=== PATIENT | male | born 1950 | race Caucasian/White ===

== ENCOUNTER → 2018-09-27 | Outpatient (REF) | payer OTHER | LOC: M LAB LCGH 14:49 | PROVIDERS: ATTEND Physician Assistant | DX: K13.79 Other lesions of oral mucosa (principal) ==

== ENCOUNTER → 2018-11-18 | Outpatient (REF) | LOC: M LAB LCGH 14:36 | PROVIDERS: ATTEND Surgery | DX: Z12.11 Encounter for screening for malignant neoplasm of colon (principal); D12.6 Benign neoplasm of colon, unspecified ==

== ENCOUNTER → 2019-10-23 | Outpatient (CLI) | payer MEDICARE ==
[~2019-10-23] MED LIST: ATOR80TA59 PO; ZYLO300T6 PO
== END ==
LOC: M LABSMTC 09:55
PROVIDERS: ATTEND Anesthesiology
DX: Z01.812 Encounter for preprocedural laboratory examination (principal); Z20.828 Contact with and (suspected) exposure to other viral communicable diseases
CPT/HCPCS: C9803; U0003

== ENCOUNTER 2019-10-28 06:04 | Day surgery (SDC) | payer MEDICARE ==
[~2019-10-28] VITALS: Ht 172.7 cm; Wt 78.9 kg
[~2019-10-28 06:04] MED LIST changes: +LR 1,000 ML IV ONE; +ceFAZolin SOD 1 GM in D5W MINI-BAG PLUS 50 ML IV ONE
[2019-10-28] MEDS ORDERED: LIDOCAINE 2% W/EPINEPHRINE 20ML VIAL **PRES FREE As Ordered ONE (07:15)
[2019-10-28] MEDS ORDERED: LIDOCAINE W/EPINEPHRINE 1% 20ML VIAL As Ordered ONE (07:15)
[2019-10-28] MEDS ORDERED: POLYSPORIN OPHTH OINT 3.5 GM As Ordered ONE (07:16)
[2019-10-28] MEDS ORDERED: dexameTHASONE 4 MG/ML 1ML VIAL (J1100 PER 1MG) As Ordered ONE (07:45)
[2019-10-28] MEDS ORDERED: propofoL 200 MG/20 ML VIAL As Ordered ONE (07:46)
[2019-10-28] MEDS ORDERED: fentaNYL 100 MCG/2 ML INJECTION (J3010) As Ordered ONE (07:46)
[2019-10-28] MEDS ORDERED: METOCLOPRAMIDE INJ 10MG/2ML VIAL (J2765 PER 1) As Ordered ONE (07:46)
[2019-10-28] MEDS ORDERED: ONDANSETRON 4MG/2ML VIAL As Ordered ONE (07:46)
[2019-10-28] MEDS ORDERED: LIDOCAINE 2% 100MG/5ML SDV (FOR ANES.) As Ordered ONE (07:46)
[2019-10-28] MEDS ORDERED: MIDAZOLAM INJ 2MG/2ML VIAL (J2250 PER 1MG) As Ordered ONE (07:46)
--- NOTE | 2019-10-28 08:24 | POST-OPPD ---
Postoperative Procedure Note Date Of Procedure: Oct 28, 2019 PREOPERATIVE DIAGNOSIS: Left periorbital lesion POSTOPERATIVE DIAGNOSIS: same FINDINGS: 0.7x0.5cm raised mass left lateral periorbital area PROCEDURE: Excision left periorbital lesion SURGEON: Dr Naranjo ANESTHESIA: Local with sedation SPECIMENS: Left periorbital mass ESTIMATED BLOOD LOSS: 1 cc REPLACED: none DRAINS: none COMPLICATIONS: none POSTOPERATIVE CONDITION: stable Dictation: [id number] GLORIA NARANJO DO Oct 28, 2019 08:24
[2019-10-28 08:56] VITALS: BP 145/72
--- NOTE | 2019-11-10 13:35 | RO ---
DATE OF OPERATION: 10/28/2019 PREOPERATIVE DIAGNOSIS: Left periorbital lesion. POSTOPERATIVE DIAGNOSIS: Left periorbital lesion. PROCEDURE: Excision, left periorbital lesion. FINDINGS: The lesion is a raised mass, 0.7 x 0.5 cm raised in the left lateral periorbital region. ATTENDING SURGEON: Ivanna Quintanilla DO ANESTHESIA: Local with sedation. SPECIMEN SENT: Left periorbital mass. BLOOD LOSS: 1 mL. COMPLICATIONS: None. PROCEDURE: This is a 69-year-old male who had previous trauma to his left periorbital area with glass. He has a previous scar in a left lateral inferior eyelid, and also he has a growing mass lateral to the left canthus; it is raised and it is interfering with his lateral gaze. The patient would like to have it removed. All risks and benefits and alternatives discussed with the patient in detail and he is ready to proceed. On the day of surgery, he was marked in the preoperative holding area. Informed consent confirmed. He was brought into the operating room, placed in the supine position. Preoperative antibiotics were given. Sequentials placed on the lower calves. Sedation was given to the patient, also as a local 2% lidocaine with epinephrine totaling 1 mL in a field block. Elliptical incision was carried out encompassing the whole lesion. It is 0.7 x 0.5 cm. We used a 15 blade to excise the lesion, which was hard in nature until the normal tissue was identified. Periorbital muscle was intact. The lesion was confined to the skin and subcutaneous tissue. It was sent to pathology. Wound was irrigated. Hemostasis obtained using electrocautery, and it was closed in layers with interrupted 5-0 Monocryl sutures and a 6-0 plain gut suture. Bacitracin ointment was applied, ophthalmic. The patient tolerated the procedure well and transferred to the recovery room in stable condition. IRENE
== END 2019-10-28 09:02 | disposition home or self-care (01) ==
LOC: M SDC 06:04
PROVIDERS: ATTEND Plastic Surgery Surgery of the Hand
DX: L72.0 Epidermal cyst (principal); L57.8 Other skin changes due to chronic exposure to nonionizing radiation; K21.9 Gastro-esophageal reflux disease without esophagitis; M10.9 Gout, unspecified; Z79.899 Other long term (current) drug therapy
CPT/HCPCS: 11441; 88305; J0690; J1100; J2250; J2405; J2765; J3010

== ENCOUNTER 2023-12-07 11:59 | Inpatient (IN) | payer MEDICARE ==
[~2023-12-07] VITALS: Ht 170.2 cm; Wt 80.3 kg
[~2023-12-07 11:59] MED LIST changes: -LR 1,000 ML IV ONE; -ceFAZolin SOD 1 GM in D5W MINI-BAG PLUS 50 ML IV ONE
[2023-12-07 15:50] VITALS: BP 148/69; TEMP 96.9; O2SAT 98
[2023-12-07] MEDS ORDERED: KETOROLAC 30 MG/ML 1ML VIAL IV PRN (17:00)
[2023-12-07] MEDS ORDERED: ACETAMINOPHEN 500 MG TAB PO PRN (17:00)
[2023-12-07] MEDS ORDERED: CELE10TA PO (17:57)
[2023-12-07] MEDS ORDERED: ASPI81TA26 PO (17:57)
[2023-12-07] MEDS ORDERED: C 50TAB PO (17:57)
[2023-12-07] MEDS ORDERED: FAMO40TA3 PO (17:57)
[2023-12-07] MEDS ORDERED: SILD100T PO (17:57)
[2023-12-07] MEDS ORDERED: ALLO300T2 PO (17:57)
[2023-12-07] MEDS ORDERED: HOME MED LIST COMPLETE! XX SCH (18:00)
[2023-12-07] MEDS: CLINDAMYCIN 600 MG in IV 1 EA IV SCH (18:21)
[2023-12-07 20:17] VITALS: BP 105/60; TEMP 97.6; O2SAT 93
[2023-12-07] MEDS: PANTOPRAZOLE 40MG TAB (PROTONIX) PO SCH (20:37)
[2023-12-07 23:33] VITALS: BP 150/68; TEMP 97.5; O2SAT 92
[2023-12-08 03:03] VITALS: BP 116/58; TEMP 97.8; O2SAT 95
[2023-12-08 05:01] LABS: HEMATOCRIT 38.8 % (42.0-52.0); HEMOGLOBIN 13.4 g/dl (13.5-17.5); MEAN CORPUSCULAR HEMOGLOBIN 32.2 pg (27.0-33.0); MEAN CORPUSCULAR HGB CONC 34.5 g/dl (32.0-36.5); MEAN CORPUSCULAR VOLUME 93.3 fl (80.0-96.0); PLATELET COUNT, AUTOMATED 266 10^3/uL (150-450); RED BLOOD COUNT 4.16 10^6/uL (4.30-6.10); WHITE BLOOD COUNT 10.6 10^3/uL (4.0-10.0)
[2023-12-08 05:34] LABS: BLOOD UREA NITROGEN 21 MG/DL (9-23); CALCIUM LEVEL 9.3 MG/DL (8.3-10.6); CARBON DIOXIDE LEVEL 26 MMOL/L (20-31); CHLORIDE LEVEL 108 MMOL/L (98-107); CREATININE FOR GFR 0.89 MG/DL (0.70-1.30); GLOMERULAR FILTRATION RATE > 60.0 (>42); GLUCOSE, FASTING 152 MG/DL (74-106); POTASSIUM SERUM 4.7 MMOL/L (3.5-5.1); SODIUM LEVEL 139 MMOL/L (136-145)
[2023-12-08 07:47] VITALS: BP 122/58; TEMP 97.4; O2SAT 96
[2023-12-08 16:03] VITALS: BP 130/56; TEMP 97.6; O2SAT 94
[2023-12-08 19:36] VITALS: BP 135/65; TEMP 97.5; O2SAT 94
[2023-12-08 21:02] VITALS: BP 130/70; TEMP 97.3; O2SAT 96
[2023-12-09 04:00] VITALS: BP 150/69; TEMP 98.1; O2SAT 97
[2023-12-09 05:06] LABS: HEMATOCRIT 39.2 % (42.0-52.0); HEMOGLOBIN 13.4 g/dl (13.5-17.5); MEAN CORPUSCULAR HEMOGLOBIN 32.7 pg (27.0-33.0); MEAN CORPUSCULAR HGB CONC 34.2 g/dl (32.0-36.5); MEAN CORPUSCULAR VOLUME 95.6 fl (80.0-96.0); PLATELET COUNT, AUTOMATED 261 10^3/uL (150-450); WHITE BLOOD COUNT 14.8 10^3/uL (4.0-10.0)
[2023-12-09 05:32] LABS: BLOOD UREA NITROGEN 28 MG/DL (9-23); CALCIUM LEVEL 9.7 MG/DL (8.3-10.6); CARBON DIOXIDE LEVEL 26 MMOL/L (20-31); CHLORIDE LEVEL 108 MMOL/L (98-107); CREATININE FOR GFR 0.87 MG/DL (0.70-1.30); GLOMERULAR FILTRATION RATE > 60.0 (>42); GLUCOSE, FASTING 155 MG/DL (74-106); POTASSIUM SERUM 4.5 MMOL/L (3.5-5.1); SODIUM LEVEL 140 MMOL/L (136-145)
[2023-12-09] MEDS ORDERED: AMOX875T2 PO (09:24)
== END 2023-12-09 12:00 | disposition home or self-care (01) | DRG 153 ==
LOC: M PCU 15:45 → M MSPAV 12-08 20:59
PROVIDERS: ADMIT Internal Medicine; ATTEND Internal Medicine Nephrology
DX: J36 Peritonsillar abscess (principal); M48.02 Spinal stenosis, cervical region; M48.061 Spinal stenosis, lumbar region without neurogenic claudication; E78.5 Hyperlipidemia, unspecified; M10.9 Gout, unspecified; F41.1 Generalized anxiety disorder; K21.9 Gastro-esophageal reflux disease without esophagitis; M16.12 Unilateral primary osteoarthritis, left hip; M72.2 Plantar fascial fibromatosis; F10.10 Alcohol abuse, uncomplicated; Z87.891 Personal history of nicotine dependence; Z79.82 Long term (current) use of aspirin; Z79.899 Other long term (current) drug therapy